=== PATIENT | male | born 1970 | race Caucasian/White ===

== ENCOUNTER → 2017-05-31 | Outpatient (CLI) | payer BC ==
--- NOTE | 2017-05-31 08:51 | CT ---
EXAMINATION TYPE: CT chest w con DATE OF EXAM: 05/31/2017 COMPARISON: NONE HISTORY: Abn CXR CT DLP: 446 mGycm, Automated exposure control for dose reduction was used. CONTRAST: Performed injected with 100 mL of Omnipaque 300. TECHNIQUE: Axial images were obtained at 5 mm thick sections. Reconstructed images are reviewed on [employer] computer in the coronal plane. FINDINGS: Portion of the thyroid visualized is normal. No suspicious lung nodules or focal infiltrates are present. There is a large right epicardial fat pa d which accounts for the opacity on the chest x-ray. On the coronal plane images this is identified a s a hernia with the opening of approximately 7 cm anteriorly. Some minimal linear atelectasis may be within the lingula. Lung windows are otherwise clear There is a 0.9 cm lymph node between the great vessels. Small pretracheal lymph node is present. The ascending aorta diameter at the level of the main pulmonary artery is 3.4 cm. The main pulmonary ar [place] diameter at the bifurcation is 2.[address] sections are obtained through the upper abdomen. There is a 0.8 cm hypodensity within the superior right lobe liver likely is a hepatic cyst. Additional suspected cysts in the lateral or infe rior right lobe liver. Remainder of the upper abdomen is unremarkable. IMPRESSIONS: 1. 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 2. Probable hepatic cysts. 3. Chest CT is otherwise unremarkable.
== END | disposition home or self-care (01) ==
LOC: RADCTMAIN 06:46
PROVIDERS: ATTEND Family Medicine
DX: K44.9 Diaphragmatic hernia without obstruction or gangrene (principal)
CPT/HCPCS: 71260; Q9967